=== PATIENT | female | born 1975 ===

== ENCOUNTER 2022-04-17 11:57 | Observation (INO) | payer SELFPAY ==
[2022-04-17] MEDS ORDERED: Sodium Chloride 0.9% 1,000 ML IV ONE ×3 (12:11→12:13)
[2022-04-17] MEDS ORDERED: Ondansetron 4 MG/2 ML SDV IVPUSH ONE (12:13)
[2022-04-17 13:06] LABS: CARBON DIOXIDE,CO2 23.3 mmol/L (21.0-32.0); HEMOGLOBIN A1C 11.1 %; POTASSIUM,K 3.9 mmol/L (3.5-5.1)
[2022-04-17] MEDS ORDERED: Insulin Regular, Human 100 Units/ML 10 ML Vial IVPUSH ONE (13:13)
[2022-04-17] MEDS ORDERED: 50% Dextrose in Water 50 ML Syringe IVPUSH PRN (13:13)
[2022-04-17] MEDS ORDERED: Glucagon,Human Recombinant 1 MG Vial IM PRN (13:13)
[2022-04-17 13:16] LABS: CORONAVIRUS COVID-19 NAA NEGATIVE (NEGATIVE); INFLUENZA A NAA NEGATIVE (NEGATIVE); INFLUENZA B NAA NEGATIVE (NEGATIVE)
[2022-04-17] MEDS ORDERED: Ondansetron 4 MG/2 ML SDV IVPUSH PRN (13:21)
[2022-04-17] MEDS: Lactated Ringers 1,000 ML IV SCH ×2 (16:34→23:28)
[2022-04-17] MEDS ORDERED: Insulin Glargine,Hum.Rec.Anlog 100 UNIT/ML 3 ML Pen SUBCUT SCH ×2 (21:00)
[2022-04-18] MEDS: Lactated Ringers 1,000 ML IV SCH (05:49)
[2022-04-18 06:18] LABS: CARBON DIOXIDE,CO2 22.1 mmol/L (21.0-32.0); POTASSIUM,K 3.9 mmol/L (3.5-5.1)
[2022-04-18] MEDS: Insulin Aspart 100 Units/ML 3 ML Pen SUBCUT SCH ×2 (07:48→11:51)
== END 2022-04-18 13:00 | disposition home or self-care (01) ==
LOC: MW.ED 11:57 → MW.MS 13:39
PROVIDERS: ADMIT Internal Medicine; ATTEND Internal Medicine
DX: E86.0 Dehydration (principal); E11.65 Type 2 diabetes mellitus with hyperglycemia; Z79.899 Other long term (current) drug therapy; Z79.4 Long term (current) use of insulin; Z20.822 Contact with and (suspected) exposure to COVID-19
CPT/HCPCS: 0240U; 36415; 71045; 80053; 81003; 82009; 82803; 82947; 83036; 83605; 83690; 83735; 84484; 84703; 85025; 87040; 93005; 96361; 96374; 99284; A9270; G0378; J1815; J2405; J7030; J7120